=== PATIENT | male | born 1985 | race Caucasian/White ===

== ENCOUNTER 2018-01-27 00:17 | Emergency (ER) | payer MEDICAID ==
[2018-01-27 01:03] LABS: BASO # 0.1 K/uL (0.0-0.2); BASO % 0.6 % (0.0-2.0); EOS # 0.3 K/uL (0.0-0.7); HEMOGLOBIN 16.2 g/dL (12.0-18.0); LYMPH % 31.1 % (20.0-40.0); MEAN CORPUSCULAR HEMOGLOBIN 29.7 pg (27.0-31.0); MEAN CORPUSCULAR HGB CONC 34.2 g/dL (33.0-37.0); MEAN PLATELET VOLUME 8.4 fL (7.2-11.7); MONO # 0.7 K/uL (0.0-0.8); MONO % 7.6 % (0.0-10.0); NEUT # 5.5 K/uL (1.8-7.0); NEUT % 57.7 % (50.0-75.0); RBC 5.44 Mil/uL (4.40-5.90); RED CELL DISTRIBUTION WIDTH 13.9 % (11.5-14.5); WHITE BLOOD COUNT 9.5 K/uL (4.8-10.8)
[2018-01-27 01:12] LABS: ALB/GLOB RATIO 1.7 (1.0-2.1); ALBUMIN 4.8 g/dL (3.5-5.0); CALCIUM 9.1 mg/dl (8.6-10.4); GFR AFRICAN-AMERICAN > 60; GFR NON-AFRICAN AMERICAN > 60
[2018-01-27 01:17] LABS: ALT/SGPT 42 U/L (21-72); AST/SGOT 33 U/L (17-59); BLOOD UREA NITROGEN 13 mg/dL (9-20)
[2018-01-27 01:20] LABS: B-TYPE NATRIURETIC PEPTIDE 13.4 pg/mL (0-450); CK-MB 0.93 ng/mL (0.0-3.38)
[2018-01-27 01:37] LABS: D DIMER < 200 ng/mlDDU (0-243); PARTIAL THROMBOPLASTIN TIME 34 SECONDS (21-34); PROTHROMBIN TIME 11.2 SECONDS (9.7-12.2)
--- NOTE | 2018-01-27 02:06 | C.PDOC ---
History Of Present Illness 32 year old male with history of cigarette smoking presents to the ED c/o left sided chest pain for the past 1 week that worsened today. Patient reports his chest pain radiates to his left shoulder and is associated with mild SOB. Patient has family history of [place] - maternal grandfather. Patient denies cough, fever, abdominal pain, nausea, vomiting, recent surgeries, air travel or prolonged immobilization. Time Seen by Provider: 01/27/18 00:20 Chief Complaint (Nursing): Chest Pain History Per: Patient History/Exam Limitations: no limitations Onset/Duration Of Symptoms: Days Current Symptoms Are (Timing): Still Present Severity: Mild Quality: "Pain" Associated Symptoms: Other (Mild SOB) Alleviating Factors: None Recent travel outside of the [place]: No Additional History Per: Patient Past Medical History Reviewed: Historical Data, Nursing Documentation, Vital Signs Vital Signs: Last Vital Signs Temp 98.4 F 01/27/18 04:46 Pulse 111 H 01/27/18 04:46 Resp 20 01/27/18 04:46 BP 135/95 H 01/27/18 04:46 Pulse Ox 100 01/29/18 17:44 - Medical History PMH: No Chronic Diseases Surgical History: No Surg Hx Family History: States: [place] (maternal grandfather ) - Social History Hx Alcohol Use: Yes Hx Substance Use: No - Immunization History Hx Tetanus Toxoid Vaccination: No Hx Influenza Vaccination: No Hx Pneumococcal Vaccination: No Review Of Systems Constitutional: Negative for: Fever, Chills Cardiovascular: Positive for: Chest Pain. Negative for: Palpitations Respiratory: Positive for: Shortness of Breath. Negative for: Cough Gastrointestinal: Negative for: Nausea, Vomiting, Abdominal Pain Musculoskeletal: Negative for: Back Pain Skin: Negative for: Rash Physical Exam - Physical Exam Appears: Non-toxic, In Acute Distress, Other (anxious) Skin: Normal Color, Warm, Dry Head: Atraumatic, Normacephalic Eye(s): bilateral: Normal Inspection Oral Mucosa: Moist Neck: Supple Chest: Symmetrical, No Tenderness Cardiovascular: Rhythm Regular Respiratory: Normal Breath Sounds, No Rales, No Rhonchi, No Wheezing, Other ( speaking full sentences) Gastrointestinal/Abdominal: Normal Exam, Bowel Sounds, Soft, No Tenderness Extremity: Normal ROM, No Tenderness, No Pedal Edema, No Calf Tenderness Pulses: Left Dorsalis Pedis: Normal, Right Dorsalis Pedis: Normal Neurological/Psych: Oriented x3 Gait: Steady ED Course And Treatment - Laboratory Results Result Diagrams: 01/27/18 00:55 01/27/18 00:55 ECG: Interpreted By Me, Viewed By Me ECG Rhythm: Sinus Rhythm ECG Interpretation: No Acute Changes (NSR 78 bpm, normal axis, no acute ST/T wave changes) Interpretation Of ECG: Normal axis Rate From EC (BPM) O2 Sat by Pulse Oximetry: 100 (ON RA) Pulse Ox Interpretation: Normal - Radiology CXR: Interpreted by Me, Viewed By Me CXR Interpretation: Yes: No Acute Disease. No: Infiltrates Progress Note: Plan: Blood work, CXR, EKG, UA ordered and reviewed. Patient offered pain medication but declined. Reevaluation Time: 04:30 Reassessment Condition: Improved (Patient reassessed, is resting comfortably and symptoms have improved. Blood work (including d-dimer and geneva x2), EKG and CXR were unremarkable. Patient is well appearing and comfortable being discharged home at this time. He was instructed to follow up with his PMD in 1- 2 days, and understands he shuould return to ED if symptoms worsen.) Disposition Counseled Patient/Family Regarding: Studies Performed, Diagnosis, Need For Followup - Disposition Referrals: Pancho Zamora MD [Primary Care Provider] - Disposition: HOME/ ROUTINE Disposition Time: 04:30 Condition: STABLE Additional Instructions: FOLLOW UP WITH YOUR DOCTOR IN 1-2 DAYS USE MEDICATION NEEDED RETURN TO ER IF SYMPTOMS WORSEN Prescriptions: Naproxen 375 mg PO BID PRN #20 tablet PRN Reason: pain Instructions: Chest Pain That Is Not Caused by the Heart (DC) Forms: [employer] (Wallisian) Print Language: SWEDISH - POA Present On Arrival: None - Clinical Impression Clinical Impression: Chest pain, non-cardiac - Scribe Statement The provider has reviewed the documentation as recorded by the Scribe Chaitanya Jara All medical record entries made by the Scribe were at my direction and personally dictated by me. I have reviewed the chart and agree that the record accurately reflects my personal performance of the history, physical exam, medical decision making, and the department course for this patient. I have also personally directed, reviewed, and agree with the discharge instructions and disposition.
[2018-01-27 03:03] LABS: URINE BILIRUBIN NEGATIVE (NEGATIVE); URINE BLOOD NEGATIVE (NEGATIVE); URINE CLARITY Clear (Clear); URINE COLOR Yellow (YELLOW); URINE GLUCOSE (UA) NORMAL (Normal); URINE LEUKOCYTE ESTERASE NEG Leu/uL (Negative); URINE PROTEIN NEGATIVE (NEGATIVE); URINE UROBILINOGEN NORMAL mg/dL (0.2-1.0)
[2018-01-27 03:15] LABS: BARBITURATES, UR NEGATIVE (NEGATIVE); BENZODIAZEPINES, UR NEGATIVE (NEGATIVE); OPIATES, UR NEGATIVE (NEGATIVE); PHENCYCLIDINE, UR NEGATIVE (NEGATIVE)
[2018-01-27 03:23] LABS: CK-MB 0.74 ng/mL (0.0-3.38)
[2018-01-27 04:48] VITALS: BP 135/95; PULSE 111; RESP 20; TEMP 98.4
--- NOTE | 2018-01-27 07:48 | RAD ---
Chest x-ray single frontal view History: Chest pain. Shortness of breath. Comparison: None available. Findings: Mild venous congestion. Bilateral hilar prominence. Mammilated / eventerated right hemidiaphragm. Clinical correlation. Heart size within normal limits. Impression: Mild venous congestion. Bilateral hilar prominence. Mammilated / eventerated right hemidiaphragm. Clinical correlation.
[2018-01-29 17:41] VITALS: O2SAT 100
== END 2018-01-27 05:29 | disposition home or self-care (01) ==
LOC: C.ER 00:17 → SUPCPDRO 00:17 → C.ER 04:46
DX: R07.89 Other chest pain (principal); Z87.891 Personal history of nicotine dependence